=== PATIENT | male | born 1960 | race Caucasian/White ===

== ENCOUNTER → 2020-12-26 10:17 | Outpatient (CLI) | payer OTHER, SELFPAY ==
--- NOTE | ~2020-12-26 | CT_ITS ---
EXAMINATION: CT lung screening DATE: 12/26/2020 11:27 INDICATION: Personal history of tobacco dependence. Lung cancer screening. TECHNIQUE: Computed tomography (CT) of the chest was performed without intravenous contrast. The dose -length product was 134.45 mGy-cm. Automated exposure control and iterative reconstruction technique were employed. COMPARISON: Chest x-ray dated 08/18/2013 FINDINGS: Heart size normal. No significant pleural or pericardial effusion. Small hiatal hernia. No thoracic lymphadenopathy. Thyroid gland is unremarkable. There are calcified mediastinal lymph nodes, consistent with chronic granulomatous disease. There is a partially visualized 1.[address] There are pancreatic calcifications which may represent chronic pancreatitis. Calcified granuloma left midlung zone. There is mild emphysema. No pneumothorax. No endobronchial les ions. There are 3 mm nodules in the left upper lobe. No lytic or blastic lesions. No acute osseous ab normality. IMPRESSION: 1. Lung-RADS category 2: Benign appearance or behavior. Continue annual screening with noncontrast lo w-dose chest CT in 12 months. Reviewed, dictated and finalized at location A. IMPRESSION: 1. Lung-RADS category 2: Benign appearance or behavior. Continue annual screeni ng with noncontrast low-dose chest CT in 12 months.
== END ==
PROVIDERS: PCP Emergency Medicine; Visit Provider Emergency Medicine
DX: Z12.2 Encounter for screening for malignant neoplasm of respiratory organs (principal); Z87.891 Personal history of nicotine dependence
CPT/HCPCS: 71271

== ENCOUNTER 2025-03-15 08:21 | Outpatient (CLI) | payer OTHER, SELFPAY ==
--- NOTE | 2025-03-15 08:28 | ECG_ITS ---
Test Date: 2025-03-15 08:38:28 Measurements Intervals [place] Rate: 88 P: 0 IA: 0 QRS: 79 QRSD: 105 T: 69 QT: 368 QTc: 447 Interpretive Statements SINUS rhythm with PACs INCOMPLETE RIGHT BUNDLE BRANCH BLOCK [90+ ms QRS DURATION, TERMINAL R IN V1/V2, 40+ ms S IN I/aVL/V4/V5/V6] ABNORMAL RHYTHM ECG No previous ECG available for comparison Electronically Signed On 03-15-2025 22:25:04 CDT by Keshia Dennis M.D.
--- OUTSIDE RECORDS SUMMARY | 2025-03-15 08:40 | XMS_ITS | Data Portability ---
Author Organization [facility] Mobile Shareholder, Main Office Address [address] [place] [address] Assessment No assessment recorded. Plan of Treatment Reminders Order Date Submit Date Provider Last Modified By Organization Details Last Modified Time Details Appointments Physical/ Annual Wellness 30 2024 08:00A Brooke Burns NP Not available Not available Not available Lab PSA, serum or plasma 2023 024 [email or web address] [id number] [facility], [address], [place], [address], 06/01/2024 08:28:05 CBC w/ auto diff 2023 024 [email or web address] [facility], [address], [place], [address], 06/01/2024 08:28:05 CMP, serum or plasma 2023 024 [facility], [address], [place], [address], 06/01/2024 08:28:05 lipid panel, serum 2023 024 [email or web address] [facility], [address], [place], [address], 06/01/2024 08:28:05 vitamin D, 25-hydrox y, total, serum 2023 024 [email or web address] 77 [facility], [address], [place], [address], 06/01/2024 08:28:05 TSH + free T4, serum 2023 024 77 [facility], [address], [place], [address], 06/01/2024 08:28:05 HbA1c (hemoglob in A1c), blood 2023 024 [email or web address] 77 [facility], [address], [place], [address], 06/01/2024 08:28:05 Referral None recorded. Procedures None recorded. Surgeries None recorded. Imaging None recorded. Medication Orders bupropion HCl 75 mg tablet 2023 024 [facility] [address], [address] [place] [address], [address], 05/25/2024 11:07:06 amlodipin e 10 mg tablet 2023 024 [facility] [address], [address] [place] [address], [address], 05/25/2024 11:07:05 lisinopri l 20 mg-hydroc hlorothia zide 25 mg tablet 2023 024 [email or web address] [facility] [address], [address] [place] [address], 05/25/2024 13:45:52 Patient TargetsNo targets recorded. Patient InstructionsNo instructions recorded. Reason for Referral None Reported. Results Created Date Observation Date Name Description Value Unit Range Abnormal Flag Note LastModifiedBy Organization Detail LastModifiedTime 06/01/2006/02/2024 TSH+F REE T4 TSH 0.964 uIU/m L 0.450- 4.500 normal Not Available [facility] ([facility]] [facility]) [address] [facility], [place], [address], 06/02/2024 14:16:51 06/01/2006/02/2024 TSH+F REE T4 T4,free(dire ct) 1.74 NG/dL 0.82-1 .77 normal Not Available [facility] ([facility]) [address] [facility], [place], [address], 06/02/2024 14:16:51 06/01/20 24 06/02/2024 CBC WITH DIFFE RENTI AL/PL ATELE T WBC 6.9 x10e3 /uL 3.4-10 .8 normal Not Available [facility] ([facility]) [address] [facility], [place], [address], 06/02/2024 14:16:51 06/01/2006/02/2024 CBC WITH DIFFE RENTI AL/PL ATELE T RBC 5.93 x10e6 /uL 4.14-5 .80 above high normal Not Available [facility] ([facility]) [address] [facility], [place], [address], 06/02/2024 14:16:51 06/01/20 24 06/02/2024 CBC WITH DIFFE RENTI AL/PL ATELE T hemoglobin 19.1 g/dL 13.0-1 7.7 above high normal Not Available [facility] ([facility]) [address] [facility], [place], [address], 06/02/2024 14:16:51 06/01/20 24 06/02/2024 CBC WITH DIFFE RENTI AL/PL ATELE T hematocrit 56.0 % 37.5-5 1.0 above high normal Not Available [facility] ([facility]) [address] [place], [address], 06/02/2024 14:16:51 06/01/2006/02/2024 CBC WITH DIFFE RENTI AL/PL ATELE T MCV 94 fL 79-97 normal Not Available [facility] ([facility]) [address] [facility], [place], [address], 06/02/2024 14:16:51 06/01/20 24 06/02/2024 CBC WITH DIFFE RENTI AL/PL ATELE T MCH 32.2 pg 26.6-3 3.0 normal Not Available [facility] ([facility]) [address] [facility], [place], [address], 06/02/2024 14:16:51 06/01/20 24 06/02/2024 CBC WITH DIFFE RENTI AL/PL ATELE T MCHC 34.1 g/dL 31.5-3 5.7 normal Not Available [facility] ([facility]) [address] [facility], [place], [address], 06/02/2024 14:16:51 06/01/20 24 06/02/2024 CBC WITH DIFFE RENTI AL/PL ATELE T RDW 12.1 % 11.6-1 5.4 Not Available [facility] ([facility]) [address] [facility], [place], [address], 06/02/2024 14:16:51 06/01/20 24 06/02/2024 CBC WITH DIFFE RENTI AL/PL ATELE T platelets 223 x10e3 /uL 150-45 0 normal Not Available [facility] ([facility]) [address] [place], [address], 06/02/2024 14:16:51 06/01/20 24 06/02/2024 CBC WITH DIFFE RENTI AL/PL ATELE T neutrophils 68 % not estab. normal Not Available [facility] ([facility]) [address] [place], [address], 06/02/2024 14:16:51 06/01/20 24 06/02/2024 CBC WITH DIFFE RENTI AL/PL ATELE T lymphs 20 % not estab. normal Not Available [facility] ([facility]) [address] [place], [address], 06/02/2024 14:16:51 06/01/20 24 06/02/2024 CBC WITH DIFFE RENTI AL/PL ATELE T monocytes 9 % not estab. normal Not Available [facility] ([facility]) [address] [facility], [place], [address], 06/02/2024 14:16:51 06/01/20 24 06/02/2024 CBC WITH DIFFE RENTI AL/PL ATELE T eos 2 % not estab. normal Not Available [facility] ([facility]) [address] [facility], [place], [address], 06/02/2024 14:16:51 06/01/20 24 06/02/2024 CBC WITH DIFFE RENTI AL/PL ATELE T basos 1 % not estab. normal Not Available [facility] ([facility]) [address] [facility], [place], [address], 06/02/2024 14:16:51 06/01/20 24 06/02/2024 CBC WITH DIFFE RENTI AL/PL ATELE T immature cells GEOSCIENCES PROFESSOR Not Available [facility] ([facility]) [address] [place], [address], 06/02/2024 14:16:51 06/01/20 24 06/02/2024 CBC WITH DIFFE RENTI AL/PL ATELE T neutrophils (absolute) 4.7 x10e3 /uL 1.4-7. 0 normal Not Available [facility] ([facility]) [address] [place], [address], 06/02/2024 14:16:51 06/01/20 24 06/02/2024 CBC WITH DIFFE RENTI AL/PL ATELE T lymphs (absolute) 1.4 x10e3 /uL 0.7-3. 1 normal Not Available [facility] ([facility]) [address] [place], [address], 06/02/2024 14:16:51 06/01/20 24 06/02/2024 CBC WITH DIFFE RENTI AL/PL ATELE T monocytes(ab solute) 0.6 x10e3 /uL 0.1-0. 9 normal Not Available [facility] ([facility]) [address] [facility], [place], [address], 06/02/2024 14:16:51 06/01/20 24 06/02/2024 CBC WITH DIFFE RENTI AL/PL ATELE T eos (absolute) 0.2 x10e3 /uL 0.0-0. 4 normal Not Available [facility] ([facility]) [address] [facility], [place], [address], 06/02/2024 14:16:51 06/01/20 24 06/02/2024 CBC WITH DIFFE RENTI AL/PL ATELE T baso (absolute) 0.0 x10e3 /uL 0.0-0. 2 normal Not Available [facility] ([facility]) [address] [facility], [place], [address], 06/02/2024 14:16:51 06/01/20 24 06/02/2024 CBC WITH DIFFE RENTI AL/PL ATELE T immature granulocytes 0 % not estab. Not Available [facility] ([facility]) [address] [facility], [place], [address], 06/02/2024 14:16:51 06/01/20 24 06/02/2024 CBC WITH DIFFE RENTI AL/PL ATELE T immature grans (abs) 0.0 x10e3 /uL 0.0-0. 1 Not Available [facility] ([facility]) [address] [facility], [place], [address], 06/02/2024 14:16:51 06/01/20 24 06/02/2024 CBC WITH DIFFE RENTI AL/PL ATELE T NRBC GEOSCIENCES PROFESSOR Not Available [facility] ([facility]) [address] [facility], [place], [address], 06/02/2024 14:16:51 06/01/20 24 06/02/2024 CBC WITH DIFFE RENTI AL/PL ATELE T hematology comments: GEOSCIENCES PROFESSOR Not Available [facility] ([facility]) [address] [place], [address], 06/02/2024 14:16:51 06/01/20 24 06/02/2024 COMP. METAB OLIC PANEL (14) glucose 112 mg/dL 70-99 above high normal Not Available [facility] ([facility]) [address] [place], [address], 06/02/2024 14:16:52 06/01/20 24 06/02/2024 COMP. METAB OLIC PANEL (14) BUN 16 mg/dL 8-27 normal Not Available [facility] ([facility]) [address] [place], [address], 06/02/2024 14:16:52 06/01/20 24 06/02/2024 COMP. METAB OLIC PANEL (14) creatinine 1.04 mg/dL 0.76-1 .27 normal Not Available [facility] ([facility]) [address] [place], [address], 06/02/2024 14:16:52 06/01/20 24 06/02/2024 COMP. METAB OLIC PANEL (14) eGFR 81 mL/mi n/1.7 3 >59 normal Not Available [facility] ([facility]) [address] [place], [address], 06/02/2024 14:16:52 06/01/20 24 06/02/2024 COMP. METAB OLIC PANEL (14) BUN/creatini ne ratio 15 10-24 normal Not Available [facility] ([facility]) [address] [place], [address], 06/02/2024 14:16:52 06/01/20 24 06/02/2024 COMP. METAB OLIC PANEL (14) sodium 138 mmol/ L 134-14 4 normal Not Available [facility] ([facility]) [address] [facility], [place], [address], 06/02/2024 14:16:52 06/01/20 24 06/02/2024 COMP. METAB OLIC PANEL (14) potassium 4.5 mmol/ L 3.5-5. 2 normal Not Available [facility] ([facility]) [address] [place], [address], 06/02/2024 14:16:52 06/01/20 24 06/02/2024 COMP. METAB OLIC PANEL (14) chloride 100 mmol/ L 96-106 normal Not Available [facility] ([facility]) [address] [place], [address], 06/02/2024 14:16:52 06/01/20 24 06/02/2024 COMP. METAB OLIC PANEL (14) carbon dioxide, total 22 mmol/ L 20-29 normal Not Available [facility] ([facility]) [address] [place], [address], 06/02/2024 14:16:52 06/01/20 24 06/02/2024 COMP. METAB OLIC PANEL (14) calcium 9.8 mg/dL 8.6-10 .2 normal Not Available [facility] ([facility] [address] [facility] [place], [address], 06/02/2024 14:16:52 06/01/20 24 06/02/2024 COMP. METAB OLIC PANEL (14) protein, total 6.5 g/dL 6.0-8. 5 normal Not Available [facility] ([facility]) [address] [place], [address], 06/02/2024 14:16:52 06/01/20 24 06/02/2024 COMP. METAB OLIC PANEL (14) albumin 4.4 g/dL 3.9-4. 9 normal Not Available [facility] ([facility]) [address] [facility] [place], [address], 06/02/2024 14:16:52 06/01/20 24 06/02/2024 COMP. METAB OLIC PANEL (14) globulin, total 2.1 g/dL 1.5-4. 5 Not Available [facility] ([facility]) [address] [place], [address], 06/02/2024 14:16:52 06/01/20 24 06/02/2024 COMP. METAB OLIC PANEL (14) bilirubin, total 0.5 mg/dL 0.0-1. 2 normal Not Available [facility] ([facility]) [address] [place], [address], 06/02/2024 14:16:52 06/01/20 24 06/02/2024 COMP. METAB OLIC PANEL (14) alkaline phosphatase 65 IU/L 44-121 normal Not Available [facility] ([facility]) [address] [place], [address], 06/02/2024 14:16:52 06/01/20 24 06/02/2024 COMP. METAB OLIC PANEL (14) AST (SGOT) 17 IU/L 0-40 normal Not Available [facility] ([facility]) [address] [place], [address], 06/02/2024 14:16:52 06/01/20 24 06/02/2024 COMP. METAB OLIC PANEL (14) ALT (SGPT) 21 IU/L 0-44 normal Not Available [facility] ([facility]) [address] [place], [address], 06/02/2024 14:16:52 06/01/20 24 06/02/2024 LIPID PANEL cholesterol, total 215 mg/dL 100-19 9 above high normal Not Available [facility] ([facility]) [address] [place], [address], 06/02/2024 14:16:52 06/01/20 24 06/02/2024 LIPID PANEL triglyceride s 86 mg/dL 0-149 normal Not Available [facility] ([facility]) [address] [place], [address], 06/02/2024 14:16:52 06/01/20 24 06/02/2024 LIPID PANEL HDL cholesterol 80 mg/dL >39 normal Not Available [facility] ([facility]) [address] [place], [address], 06/02/2024 14:16:52 06/01/20 24 06/02/2024 LIPID PANEL VLDL cholesterol franny 15 mg/dL 5-40 Not Available [facility] ([facility]) [address] [place], [address], 06/02/2024 14:16:52 06/01/20 24 06/02/2024 LIPID PANEL LDL chol calc ([facility]) 120 mg/dL 0-99 above high normal Not Available [facility] ([facility]) [address] [place], [address], 06/02/2024 14:16:52 06/01/2006/02/2024 LIPID PANEL LDL calc comment: GEOSCIENCES PROFESSOR Not Available [facility] ([facility]) [address] [place], [address], 06/02/2024 14:16:52 06/01/2006/01/2024 PSA TOTAL (REFL EX TO FREE) reflex criteria COMMEN T The perce nt free PSA is perfo rmed on a refle x basis only when the total PSA is betwe en 4.0 and 10.0 ng/mL . Not Available [facility] ([facility]) [address] [place], [address], 06/02/2024 14:16:53 06/01/20 24 06/02/2024 PSA TOTAL (REFL EX TO FREE) prostate specific Ag 0.6 NG/mL 0.0-4. 0 normal Brian ECLIA metho dolog y. Accor ding to the Ameri can Urolo gical Assoc iatio n, Serum PSA shoul d decre ase and remai n at undet ectab le level s after radic al prost atect sammie. The AUA defin es bioch emica l recur rence as an initi al PSA value 0.2 ng/mL or great er follo wed by a subse quent confi rmato ry PSA value 0.2 ng/mL or great er. Value s obtai lorene with diffe rent assay metho ds or kits canno t be used inter appiah eably . Resul ts canno t be inter prete d as absol wales evide nce of the prese nce or absen ce of adela bradley se. Not Available [facility] ([facility]) [address] [facility], [place], [address], 06/02/2024 14:16:53 06/01/20 24 06/02/2024 HEMOG LOBIN A1C hemoglobin A1C 5.5 % 4.8-5. 6 normal Predi abete s: 5.7 - 6.4 Diabe shereen: >6.4 Glyce linda contr ol for adult s with diabe shereen: <7.0 Not Available [facility] ([facility]) [address] [facility], [place], [address], 06/02/2024 14:16:53 06/01/20 24 06/02/2024 VITAM IN D, 25-HY DROXY vitamin D, 25-hydroxy 38.5 NG/mL 30.0-1 00.0 Vitam in D defic iency has been defin ed by the Insti tute of Medic ine and an Endoc rine Socie ty pract ice guide line as a level of serum 25-OH vitam in D less than 20 ng/mL (1,2) . The Endoc rine Socie ty went on to furth er defin e vitam in D insuf ficie ncy as a level betwe en 21 and 29 ng/mL (2). 1. IOM (Inst itute of Medic ine). 2010. Dieta ry refer ence intak es for calci um and DSteve johnson [place]: The Natio nal [employer] . 2. Bartolo ESPINOZA, Courtney farr [place], Brenda off-F dann i MURRAY, et al. Evalu ation , treat ment, and preve ntion of vitam in D defic iency : an Endoc rine Socie ty clini franny pract ice guide line. JCEM. 2010; 96(7) :1911 -30. Not Available [facility] ([facility]) [address] [facility], [place], [address], 06/02/2024 14:16:53 Result Notes None recorded. Problems Name Problem SNOMED Code Status Onset Date Resolution Date Notes Provider Name and Address Organization Details Recorded Time Smoker 66295705 Active 2023 NORMAN Doherty [address], [address], [place], [address], [employer] 4 11:01:10 Essential hypertension 58566724 Active 2023 NORMAN Doherty [address], [address], [place], [address], [employer] 4 11:02:00 Problem Notes None recorded. Medical Equipment None Reported. Allergies No known drug allergies Medications Name Sig Start Date Stop Date Status Note LastModified by Organization Details LastModified Time tretinoin 0.1 % topical cream APPLY 1 APPLICATI ON OF CREAM TOPICALLY TO FACE AT BEDTIME FOR 30 DAYS 05/25 completed Not Available Not Available Not Available tretinoin 0.05 % topical cream APPLY 1 CREAM TO FACE TOPICALLY AT BEDTIME FOR 30 DAYS 05/25 completed Not Available Not Available Not Available amlodipine 10 mg tablet TAKE 1 TABLET BY MOUTH ONCE DAILY active Not Available Not Available No t Available bupropion HCl 75 mg tablet Take 1 tablet twice a day by oral route. 2024 active Not Available Not Available Not Avai lable lisinopril 20 mg-hydrochl orothiazide 25 mg tablet TAKE 1 TABLET BY MOUTH ONCE DAILY active Not Available Not Available No t Available hydrocortis one 2.5 % topical ointment APPLY TO EYELID TWICE DAILY NEEDED active Not Available Not Available No t Available azelaic acid 15 % topical gel APPLY THIN LAYER TOPICALLY TO FACE TWICE DAILY 05/25 completed Not Available Not Available Not Available Vitals Date Recorded Body weight Body mass index (BMI) Body height Body temperature Heart rate Oxygen saturation Oxygen saturation in Arterial blood by Pulse oximetry Systolic And Diastolic Provider Name and Address Organization Details Last Updated DateTime 4 [address]317.2 2 g 23.2 kg/m2 187.96 cm 98 [degF] 106 /min 98 % 98 % 156/82 mm[Hg] John Gutierrez RN [place] [facility] [employer] 4 10:36:36 Social History None recorded. Functional Status None recorded. Mental Status None recorded. Family History Relationship Description Onset Age of this Age Resolved Age Notes LastModified by Organization Details LastModified Time Father No current problems or disability [id number] Not available 10:38:23 Mother No current problems or disability [id number] Not available 10:38:23 Medical History No medical history recorded. Past Encounters Encounter ID Performer Location Encounter Start Date Encounter Closed Date Diagnosis/Indication Diagnosis SNOMED-CT Code Diagnosis ICD10 Code Diagnosis Note [id number] CRYSTAL Doherty-Stephany [facility] [address] [place] [address] 05/25/2024 10:32:25 05/25/2024 11:09:31 Adult health examination 150238753 Z00.00 Z00.01 Discussed medication compliance and routine follow up.Discuss ed healthy diet and routine exercise.Hipolito joneswed vaccine records and made recommenda tions as needed.Enc ouraged annual eye and dental exams, as well as twice yearly dental cleanings. Will check screening labs as listed below. Screening for malignant neoplasm of prostate 661770535 Z12.5 Smoker 12199142 F17.200 Would like to try Bupropion for smoking cessationL DCT scan UTD per patient Essential hypertension 33643504 I10 156/82 initialGoa l: 140/90Doin g well on current medication sDiscussed DASH diet with patient and increased daily routine exercise Health Concerns Section Related Observation LastModified by Organization Detai ls LastModified Time None Recorded Concern Status LastModified by Organization Details LastModified Time None Recorded Advance Directives Directive None Recorded Payers Insurance Date Sequence Insurance Name Policy Number Policy Aguilar Covered Member ID Aguilar Member ID Guarantor Name 02/22/2025 1 [facility] [id number] Oswaldo Freitas [id number] Oswaldo Freitas Notes Date Note Type Note Provider Name and Address Organization Details Recorded Time 05/25/2024 text/html Patient is a 63 year old male that presents to the office to establish care. Patient reports he is doing well overall and has no medical concerns at this time. Patient previously went to Dr. Alejandro but has not been there is a while. Patient smokes 1/2 to 1 pack of cigarettes daily, has been trying to quit. Patient would like to try Bupropion has his friend has had success with it. Patient takes Amlodipine and Lisinopril/HCTZ for hypertension that has been well controlled. labs-ordered--labc orpPSA-orderedColo guard---doesn't wish to do it nowFlu-declinesCov id-first 2 dosesTdap-awareShi ngles-declineslow dose CT scan within the last 4 yearssmoke-1/2 to 1 pack per day CRYSTAL Doherty-Stephany [address] [facility] [facility] [address], [place], [address], [place] [employer] 05/25/2024 13:57:55
--- OUTSIDE RECORDS SUMMARY | 2025-03-15 08:40 | XMS_ITS | Continuity of Care Document ---
Author Organization [facility] [place] Address [address] [facility] [place] [address] [place] [address] Phone Care Team Providers Care Air Valve Repairer Name Role Phone Seb Alejandro MD Unavailable Unavailable Allergies, Adverse Reactions, Alerts Substance Reaction Status Criticality No Known Allergies Active No Inform ation Medications Medication Instructions Dosage Effective Dates (start - stop) Status Comments Norvasc 10 mg tablet take 1 tablet by oral route every day 10 MG - Active lisinopril 20 mg-hydrochlorothiaz liza 25 mg tablet take 1 tablet by oral route every day 1.00 tablet - Active Procedures Procedure Date PREV VISIT, EST, AGE 40-64 OFFICE/OUTPATIENT VISIT, EST OFFICE/OUTPATIENT VISIT, [facility] Advance Directives Directive Yes / No Effective Date File Name No Information Encounters Encounter Description Practice Location Reason(s) For Visit Diagnoses Date Provider Providers Copied on Encounter [facility], [address] [place], [id number], tel:[phone] [facility] No Information 2 Javon Grigsby. [email or web address] [facility] [place], [address] , [place]. tel:[phone] PREV VISIT, EST, AGE 40-64 [facility], [address] [place], [place], [address], tel:[phone] [facility] Medicine physical (chief complaint) Encounter for general adult medical examination without abnormal findings 2 Javon Grigsby. [address], [facility] [address], [place], [place], [id number] , [place]. tel:[phone] OFFICE/OUTPA TIENT VISIT, [facility], [address] [place], [place], [address], tel:[phone] [facility] HLP (chief complaint) glucose1 (chief complaint) HTN (chief complaint) tobacco1 (chief complaint) HyperlipidemiaEssen tial (primary) hypertensionHypergl ycemiaTobacco useEncounter for screening for malignant neoplasm of colon Dec- 1 Javon Grigsby. [address], [place], [place], [address] , [place]. tel:[phone] OFFICE/OUTPA TIENT VISIT, [facility], [address] [place], [place], [address], [place] tel:[phone] [facility] HTN (chief complaint) nevus1 (chief complaint) HLP (chief complaint) tobacco1 (chief complaint) Essential (primary) hypertensionEncount er for screening for malignant neoplasm of colonTobacco useNevus, non-neoplasticHyper lipidemiaEncounter for screening for other viral diseases Nov-0 1 Javon Grigsby. [address], [place], [place], [address] , [place]. tel:[phone] Family History Family Member Type Diagnosis Age At Onset Brother Problem Alive and well Mother Problem 80 breast CA Father Problem 69 unknown cause Payers Payer name Insurance type Covered democrat ID Authoriza tion(s) No Information Social History Type Description Quantity Date Captured Comments Alcohol Use Details Unknown Caffeine Use Details Unknown Tobacco Use Status Smoking Status No Information Sex Male Chief Complaint And Reason For Visit No Information Plan Of Treatment Date Type Action Status Referral Ordered: [facility] -[facility] : Internal Medicine : Gastroenterology (related to Encounter for screening for malignant neoplasm of colon) ordered Referral Referred To: Peter Belle [address] [place] [address], [phone] Ordered: Referrals: [facility]opathic Physicians : Internal Medicine : Gastroenterology. [facility]. Evaluate and treat ordered Referral Ordered: CT THORAX W/O DYE ordered History Of Present Illness Encounter Date Complaint History Of Prese nt Illness physical Pt needs annual physical. Pt has HTN, Pt takes norvasc and lisinopril/hctz and his bp is stable at home. Pt denies any chest pain or headache Pt has HLP Pt has not taken crestor for one year. Pt is noncompliant with statin Pt denies any chest pain. Pt also never did colonoscopy Pt denies any GI issue. pt has been trying to lose weight with diet and exercise. Pt denies any abd pain, nausea, vomiting, appetite loss, early satiety, etc. tobacco Pt denies any he moptysis, sob or cough. His LDCT is ok. HTN Pt has HTN Pt ta kes norvasc and lisinopril./hctz and his bp is ok. Pt denies any chest pain or headache glucose Pt has high gluc ose Pt denies any polyuria, polydipsia. Pt does eat a lot of carb and processed food HLP Pt has HLP. Pt h as long acting HLP Pt was prescribed statin but he never tried. tobacco Pt has more than 30 pack year tobacco history Pt denies any sob, hemoptysis or cough HLP Pt has ? history of HLP. Pt is not on any medication now. nevus1 Pt has multiple nevus on skin Pt did have a lot of sun exposure in the past. pt denies any mole with changing size HTN Pt has HTN Pt ta kes norvasc and lisinopril/hct and his bp is ok. Pt denies any chest pain or headache Instructions Date Instruction Additional Infor mation No Information Assessments Type Assessment Date No Information
[2025-03-15 08:54] LABS: Anion Gap 6 mmol/L (4-12); Blood Urea Nitrogen 16 mg/dL (9-20); Calcium 9.6 mg/dL (8.4-10.2); Carbon Dioxide 27 mmol/L (22-30); Chloride 105 mmol/L (98-107); Estimated Glomerular Filt Rate > 60; Glucose 133 mg/dL (65-110); Potassium 4.1 mmol/L (3.4-5.0); Sodium 138 mmol/L (137-145)
== END 2025-03-15 08:22 | disposition home or self-care (01) ==
PROVIDERS: Anesthesiology; PCP Nurse Practitioner Family; Visit Provider Surgery
DX: R94.31 Abnormal electrocardiogram [ECG] [EKG] (principal); Z01.818 Encounter for other preprocedural examination; K40.90 Unilateral inguinal hernia, without obstruction or gangrene, not specified as recurrent; I10 Essential (primary) hypertension; Z79.899 Other long term (current) drug therapy
CPT/HCPCS: 36415; 80048; 86850; 86900; 86901; 93005

== ENCOUNTER 2025-03-19 00:18 | Day surgery (SDC) | payer OTHER, SELFPAY ==
[2025-03-10 16:09] VITALS: BMI 23.2
--- NOTE | 2025-03-10 16:18 | SUR.PREOP ---
Report to the Outpatient Waiting Room, entrance under the green pavilion located off [facility], at time 0930 on date 03/19/25. Planned Procedure Time: 1130.? Time changes happen often and if your time is changed the preop area will call you the afternoon before. - You and your visitor will be asked to self-screen and do not enter if you have any COVID symptoms. Please call surgeon if you need to reschedule. - A mask is optional within the hospital at this time. Patients may have clear liquids (water, carbonated beverages, clear teas, apple juice) until 3 hours prior to surgery with a maximum of 20 ounces. - No food from midnight until time of surgery and no smoking, or chewing tobacco (or any form of nicotine). No chewing gum, candy or mints. - Infants may have breast milk until 4 hours before surgery, formula 6 hours prior to surgery. - Children will be allowed to drink immediately following surgery.? If applicable, please bring a bottle or sippy cup to assist with drinking. Juice, water, soda, and popsicles are readily available.? For infants on formula, please bring formula the day of surgery.? Pacifiers are allowed. Take only the following medications with a SIP of water on the morning of surgery: amlodipine, bupropion DO NOT STOP ANY OF YOUR OTHER PRESCRIPTION MEDICATIONS PRIOR TO SURGERY EXCEPT THE FOLLOWING Hold all vitamins and supplements for 3 days per anesthesiologist. Medications to discontinue per physician hold lisinopril/HCTZ day of surgery, hold multivitamins 3 days before surgery Date to take last dose Please no make-up, nail [place], hairspray, perfume, deodorant, or body powder the day of surgery.? No jewelry (including any body piercings) or valuables the day of surgery, leave them at home.? Please take a shower or bath the night before, or the morning of, surgery with an antibacterial soap.? Wear comfortable, loose fitting clothing.? Children are encouraged to wear pajamas. - Jewelry must be removed prior to entering the operating room.? Rings and piercings that are not removed may be cut off. - The hospital will not accept responsibility for valuables.? - Please leave all valuables, including medications, at home the day of surgery. If you are going home after surgery, a licensed test car driver must drive you home.? - NO public transportation without another adult if you receive anesthesia. - We recommend that an adult stay with you for 24 hours following discharge. - We also recommend that you do not drive, make important decision, drink alcoholic beverages, or take any drugs that were not prescribed by your health care provider for at least 24 hours after your discharge time. For Pediatric surgeries, we recommend two adults accompany the child home. Follow any additional instructions given to you from your surgeon. Telephone instructions given to _patient_and asked if any additional questions and then verbalized understanding. Patient advised to call surgeon office or pre surgery nurse liaison [phone] if any additional questions.
[2025-03-19] VITALS (10 sets, daily range): BP systolic 94–138; BP diastolic 54–79; PULSE 61–78; RESP 10–19; TEMP 36.1–36.7; O2SAT 92–100
--- OUTSIDE RECORDS SUMMARY | 2025-03-19 00:21 | XMS_ITS | Data Portability ---
Author Organization [facility], Main Office Address [address] [place] [address] Assessment No assessment recorded. Plan of Treatment Reminders Order Date Submit Date Provider Last Modified By Organization Details Last Modified Time Details Appointments Physical/ Annual Wellness 30 2024 08:00A Brooke Burns NP Not available Not available Not available Lab PSA, serum or plasma 2023 024 [email or web address] 77 [facility], [address], [place], [address], 06/01/2024 08:28:05 CBC w/ auto diff 2023 024 [email or web address] [facility], [address], [place], [address], 06/01/2024 08:28:05 CMP, serum or plasma 2023 024 [id number] [facility], [address], [place], [address], 06/01/2024 08:28:05 lipid panel, serum 2023 024 [email or web address] [facility], [address], [place], [address], 06/01/2024 08:28:05 vitamin D, 25-hydrox y, total, serum 2023 024 [email or web address] 77 [facility], [address], [place], [address], 06/01/2024 08:28:05 TSH + free T4, serum 2023 024 [id number] 77 [facility], [address], [place], [address], 06/01/2024 08:28:05 HbA1c (hemoglob in A1c), blood 2023 024 [email or web address] 77 [facility], [address], [place], [address], 06/01/2024 08:28:05 Referral None recorded. Procedures None recorded. Surgeries None recorded. Imaging None recorded. Medication Orders bupropion HCl 75 mg tablet 2023 024 [facility], [address] [place] [address], [address], 05/25/2024 11:07:06 amlodipin e 10 mg tablet 2023 024 [facility] [address], [address] [place] [address], [address], 05/25/2024 11:07:05 lisinopri l 20 mg-hydroc hlorothia zide 25 mg tablet 2023 024 [email or web address] [facility] [address], [address] [place] [address], [address], 05/25/2024 13:45:52 Patient TargetsNo targets recorded. Patient InstructionsNo instructions recorded. Reason for Referral None Reported. Results Created Date Observation Date Name Description Value Unit Range Abnormal Flag Note LastModifiedBy Organization Detail LastModifiedTime 06/01/2006/02/2024 TSH+F REE T4 TSH 0.964 uIU/m L 0.450- 4.500 normal Not Available [facility] ([facility]) [address] [facility], [place], [address], 06/02/2024 14:16:51 06/01/2006/02/2024 TSH+F REE T4 T4,free(dire ct) 1.74 NG/dL 0.82-1 .77 normal Not Available [facility] ([facility]) [address] [facility], [place], [address], 06/02/2024 14:16:51 06/01/20 24 06/02/2024 CBC WITH DIFFE RENTI AL/PL ATELE T WBC 6.9 x10e3 /uL 3.4-10 .8 normal Not Available [facility] ([facility]) [address] [facility], [place], [address], 06/02/2024 14:16:51 06/01/2006/02/2024 CBC WITH DIFFE RENTI AL/PL ATELE T RBC 5.93 x10e6 /uL 4.14-5 .80 above high normal Not Available [facility] ([facility]) [address] [facility], [place], [address], 06/02/2024 14:16:51 06/01/20 24 06/02/2024 CBC WITH DIFFE RENTI AL/PL ATELE T hemoglobin 19.1 g/dL 13.0-1 7.7 above high normal Not Available [facility] ([facility]) [address] [facility], [place], [address], 06/02/2024 14:16:51 06/01/20 24 06/02/2024 CBC WITH DIFFE RENTI AL/PL ATELE T hematocrit 56.0 % 37.5-5 1.0 above high normal Not Available [facility] ([facility]) [address] [place], [address], 06/02/2024 14:16:51 06/01/2006/02/2024 CBC WITH DIFFE RENTI AL/PL ATELE T MCV 94 fL 79-97 normal Not Available [facility] ([facility]) [address] [facility], [place], [address], 06/02/2024 14:16:51 06/01/20 24 06/02/2024 CBC WITH DIFFE RENTI AL/PL ATELE T MCH 32.2 pg 26.6-3 3.0 normal Not Available [facility] ([facility]) [address] [facility], [place], [address], 06/02/2024 14:16:51 06/01/20 24 06/02/2024 CBC WITH DIFFE RENTI AL/PL ATELE T MCHC 34.1 g/dL 31.5-3 5.7 normal Not Available [facility] ([facility]) [address] [facility], [place], [address], 06/02/2024 14:16:51 06/01/20 24 06/02/2024 CBC WITH DIFFE RENTI AL/PL ATELE T RDW 12.1 % 11.6-1 5.4 Not Available [facility] ([facility]) [address] [facility], [place], [address], 06/02/2024 14:16:51 06/01/20 24 06/02/2024 CBC WITH DIFFE RENTI AL/PL ATELE T platelets 223 x10e3 /uL 150-45 0 normal Not Available [facility] ([facility]) [address] [place], [address], 06/02/2024 14:16:51 06/01/20 24 06/02/2024 CBC WITH DIFFE RENTI AL/PL ATELE T neutrophils 68 % not estab. normal Not Available [facility] ([facility]) [address] [place], [address], 06/02/2024 14:16:51 06/01/20 24 06/02/2024 CBC WITH DIFFE RENTI AL/PL ATELE T lymphs 20 % not estab. normal Not Available [facility] ([facility]) [address] [place], [address], 06/02/2024 14:16:51 06/01/20 24 06/02/2024 CBC WITH DIFFE RENTI AL/PL ATELE T monocytes 9 % not estab. normal Not Available [facility] ([facility]) [address] [facility], [place], [address], 06/02/2024 14:16:51 06/01/20 24 06/02/2024 CBC WITH DIFFE RENTI AL/PL ATELE T eos 2 % not estab. normal Not Available [facility] ([facility]) [address] [facility], [place], [address], 06/02/2024 14:16:51 06/01/20 24 06/02/2024 CBC WITH DIFFE RENTI AL/PL ATELE T basos 1 % not estab. normal Not Available [facility] ([facility]) [address] [facility], [place], [address], 06/02/2024 14:16:51 06/01/20 24 06/02/2024 CBC WITH DIFFE RENTI AL/PL ATELE T immature cells WILDLIFE ENFORCEMENT MAJOR Not Available [facility] ([facility]) [address] [place], [address], 06/02/2024 14:16:51 06/01/20 24 06/02/2024 CBC WITH DIFFE RENTI AL/PL ATELE T neutrophils (absolute) 4.7 x10e3 /uL 1.4-7. 0 normal Not Available [facility] ([facility]) [address] [place], [address], 06/02/2024 14:16:51 06/01/20 24 06/02/2024 CBC WITH DIFFE RENTI AL/PL ATELE T lymphs (absolute) 1.4 x10e3 /uL 0.7-3. 1 normal Not Available [facility] ([facility]) [address] [place], [address], 06/02/2024 14:16:51 06/01/20 24 06/02/2024 CBC WITH DIFFE RENTI AL/PL ATELE T monocytes(ab solute) 0.6 x10e3 /uL 0.1-0. 9 normal Not Available [facility] ([facility]) [address] [facility], [place], [address], 06/02/2024 14:16:51 06/01/20 24 06/02/2024 CBC WITH DIFFE RENTI AL/PL ATELE T eos (absolute) 0.2 x10e3 /uL 0.0-0. 4 normal Not Available [facility] ([facility]) [address] [facility], [place], [address], 06/02/2024 14:16:51 06/01/20 24 06/02/2024 CBC WITH DIFFE RENTI AL/PL ATELE T baso (absolute) 0.0 x10e3 /uL 0.0-0. 2 normal Not Available [facility] ([facility]) [address] [facility], [place], [address], 06/02/2024 14:16:51 06/01/20 24 06/02/2024 CBC WITH DIFFE RENTI AL/PL ATELE T immature granulocytes 0 % not estab. Not Available [facility] ([facility]) [address] [facility], [place], [address], 06/02/2024 14:16:51 06/01/20 24 06/02/2024 CBC WITH DIFFE RENTI AL/PL ATELE T immature grans (abs) 0.0 x10e3 /uL 0.0-0. 1 Not Available [facility] ([facility]) [address] [facility], [place], [address], 06/02/2024 14:16:51 06/01/20 24 06/02/2024 CBC WITH DIFFE RENTI AL/PL ATELE T NRBC WILDLIFE ENFORCEMENT MAJOR Not Available [facility] ([facility]) [address] [facility], [place], [address], 06/02/2024 14:16:51 06/01/20 24 06/02/2024 CBC WITH DIFFE RENTI AL/PL ATELE T hematology comments: WILDLIFE ENFORCEMENT MAJOR Not Available [facility] ([facility]) [address] [facility] [place], [address], 06/02/2024 14:16:51 06/01/20 24 06/02/2024 COMP. METAB OLIC PANEL (14) glucose 112 mg/dL 70-99 above high normal Not Available [facility] ([facility]) [address] [facility] [place], [address], 06/02/2024 14:16:52 06/01/20 24 06/02/2024 COMP. METAB OLIC PANEL (14) BUN 16 mg/dL 8-27 normal Not Available [facility] ([facility]) [address] [facility] [place], [address], 06/02/2024 14:16:52 06/01/20 24 06/02/2024 COMP. METAB OLIC PANEL (14) creatinine 1.04 mg/dL 0.76-1 .27 normal Not Available [facility] ([facility]) [address] [facility] [place], [address], 06/02/2024 14:16:52 06/01/20 24 06/02/2024 COMP. METAB OLIC PANEL (14) eGFR 81 mL/mi n/1.7 3 >59 normal Not Available [facility] ([facility]) [address] [facility] [place], [address], 06/02/2024 14:16:52 06/01/20 24 06/02/2024 COMP. METAB OLIC PANEL (14) BUN/creatini ne ratio 15 10-24 normal Not Available [facility] ([facility]) [address] [facility] [place], [address], 06/02/2024 14:16:52 06/01/20 24 06/02/2024 COMP. METAB OLIC PANEL (14) sodium 138 mmol/ L 134-14 4 normal Not Available [facility] ([facility]) [address] [facility], [place], [address], 06/02/2024 14:16:52 06/01/20 24 06/02/2024 COMP. METAB OLIC PANEL (14) potassium 4.5 mmol/ L 3.5-5. 2 normal Not Available [facility] ([facility]) [address] [place], [address], 06/02/2024 14:16:52 06/01/20 24 06/02/2024 COMP. METAB OLIC PANEL (14) chloride 100 mmol/ L 96-106 normal Not Available [facility] ([facility]) [address] [place], [address], 06/02/2024 14:16:52 06/01/20 24 06/02/2024 COMP. METAB OLIC PANEL (14) carbon dioxide, total 22 mmol/ L 20-29 normal Not Available [facility] ([facility]) [address] [place], [address], 06/02/2024 14:16:52 06/01/20 24 06/02/2024 COMP. METAB OLIC PANEL (14) calcium 9.8 mg/dL 8.6-10 .2 normal Not Available [facility] ([facility]) [address] [place], [address], 06/02/2024 14:16:52 06/01/20 24 06/02/2024 COMP. METAB OLIC PANEL (14) protein, total 6.5 g/dL 6.0-8. 5 normal Not Available [facility] ([facility]) [address] [place], [address], 06/02/2024 14:16:52 06/01/20 24 06/02/2024 COMP. METAB OLIC PANEL (14) albumin 4.4 g/dL 3.9-4. 9 normal Not Available [facility] ([facility]) [address] [facility], [address], 06/02/2024 14:16:52 06/01/20 24 06/02/2024 COMP. METAB OLIC PANEL (14) globulin, total 2.1 g/dL 1.5-4. 5 Not Available [facility] ([facility]) [address] [facility] [place], [address], 06/02/2024 14:16:52 06/01/20 24 06/02/2024 COMP. METAB OLIC PANEL (14) bilirubin, total 0.5 mg/dL 0.0-1. 2 normal Not Available [facility] ([facility]) [address] [facility] [place], [address], 06/02/2024 14:16:52 06/01/20 24 06/02/2024 COMP. METAB OLIC PANEL (14) alkaline phosphatase 65 IU/L 44-121 normal Not Available [facility] ([facility]) [address] [place], [address], 06/02/2024 14:16:52 06/01/20 24 06/02/2024 COMP. METAB OLIC PANEL (14) AST (SGOT) 17 IU/L 0-40 normal Not Available [facility] ([facility]) [address] [place], [address], 06/02/2024 14:16:52 06/01/20 24 06/02/2024 COMP. METAB OLIC PANEL (14) ALT (SGPT) 21 IU/L 0-44 normal Not Available [facility] ([facility]) [address] [place], [address], 06/02/2024 14:16:52 06/01/20 24 06/02/2024 LIPID PANEL cholesterol, total 215 mg/dL 100-19 9 above high normal Not Available [facility] ([facility]) [address] [place], [address], 06/02/2024 14:16:52 06/01/20 24 06/02/2024 LIPID PANEL triglyceride s 86 mg/dL 0-149 normal Not Available [facility] ([facility]) [address] [place], [address], 06/02/2024 14:16:52 06/01/20 24 06/02/2024 LIPID PANEL HDL cholesterol 80 mg/dL >39 normal Not Available [facility] ([facility]) [address] [place], [address], 06/02/2024 14:16:52 06/01/20 24 06/02/2024 LIPID PANEL VLDL cholesterol franny 15 mg/dL 5-40 Not Available [facility] ([facility]) [address] [place], [address], 06/02/2024 14:16:52 06/01/20 24 06/02/2024 LIPID PANEL LDL chol calc ([email or web address] 120 mg/dL 0-99 above high normal Not Available [facility] ([facility]) [address] [place], [address], 06/02/2024 14:16:52 06/01/2006/02/2024 LIPID PANEL LDL calc comment: WILDLIFE ENFORCEMENT MAJOR Not Available [facility] ([facility]) [address] [place], [address], 06/02/2024 14:16:52 06/01/2006/01/2024 PSA TOTAL (REFL EX TO FREE) reflex criteria COMMEN T The perce nt free PSA is perfo rmed on a refle x basis only when the total PSA is betwe en 4.0 and 10.0 ng/mL . Not Available [facility] ([facility]) [address] [place], [address], 06/02/2024 14:16:53 06/01/20 24 06/02/2024 PSA TOTAL [...] t be inter prete d as absol tiffanie evide nce of the prese nce or absen ce of adela bradley se. Not Available [facility] ([facility]) [address] [facility], [place], [address], 06/02/2024 14:16:53 06/01/20 24 06/02/2024 HEMOG LOBIN A1C hemoglobin A1C 5.5 % 4.8-5. 6 normal Predi abete s: 5.7 - 6.4 Diabe shereen: >6.4 Glyce linda contr ol for adult s with diabe shereen: <7.0 Not Available [facility] ([facility]) [address] [facility], [place], [address], 06/02/2024 14:16:53 06/01/20 24 06/02/2024 VITAM IN [...] 2010; 96(7) :1911 -30. Not Available [facility] ([facility]) [address] [facility], [place], [address], 06/02/2024 14:16:53 Result Notes None recorded. Problems Name Problem SNOMED Code Status Onset Date Resolution Date Notes Provider Name and Address Organization Details Recorded Time Smoker 61198804 Active 2023 NORMAN Doherty [address], [place], [address], [employer] 4 11:01:10 Essential hypertension 46451643 Active 2023 NORMAN Doherty [address], [address], [place], [address], [employer] 4 11:02:00 Problem Notes None recorded. Medical [...] Address Organization Details Last Updated DateTime 4 [address].2 2 g 23.2 kg/m2 187.96 cm 98 [degF] 106 /min 98 % 98 % 156/82 mm[Hg] John Gutierrez RN [place] [facility] [employer] [employer] [facility] 4 10:36:36 Social History None recorded. Functional Status None recorded. Mental Status None recorded. Family History Relationship Description Onset Age of this Age Resolved Age Notes LastModified by Organization Details LastModified Time Father No current problems or disability [email or web address] Not available 10:38:23 Mother No current problems or disability [email or web address] Not available 10:38:23 Medical History No medical history recorded. Past Encounters Encounter ID Performer Location Encounter Start Date Encounter Closed Date Diagnosis/Indication Diagnosis SNOMED-CT Code Diagnosis ICD10 Code Diagnosis Note [id number] CRYSTAL Doherty-Stephany [facility] [address] [place] [address] 05/25/2024 10:32:25 05/25/2024 11:09:31 Adult health examination 879550701 Z00.00 Z00.01 Discussed medication compliance and routine follow up.Discuss ed healthy diet and routine exercise.Hipolito joneswed vaccine records and made recommenda tions as needed.Enc ouraged annual eye and dental exams, as well as twice yearly dental cleanings. Will check screening labs as listed below. Screening for malignant neoplasm of prostate 187810046 Z12.5 Smoker 82682201 F17.200 Would like to try Bupropion for smoking cessationL DCT scan UTD per patient Essential hypertension 77776160 I10 156/82 initialGoa l: 140/90Doin g well [...] Aguilar Member ID Guarantor Name 02/22/2025 1 [facility] [id number] Oswaldo Freitas [id number] Oswaldo Freitas Notes Date Note Type Note [...] 1 pack per day CRYSTAL Doherty-Stephany [address] [facility], [facility] [address], [place], [address], [place] [employer] 05/25/2024 13:57:55
--- OUTSIDE RECORDS SUMMARY | 2025-03-19 00:21 | XMS_ITS | Continuity of Care Document ---
Author Organization [facility] Address [address] [facility] [place] [address] [place] [address] Phone Care Team Providers Care Party Plan Sales Unit Advisor Name Role Phone Seb Alejandro MD Unavailable Unavailable Allergies, Adverse Reactions, Alerts Substance Reaction Status Criticality No Known Allergies Active No Inform ation Medications Medication Instructions Dosage Effective Dates (start - stop) Status Comments lisinopril 20 mg-hydrochlorothiaz liza 25 mg tablet take 1 tablet by oral route every day 1.00 tablet - Active Norvasc 10 mg tablet take 1 tablet by oral route every day 10 MG - Active Procedures Procedure Date PREV VISIT, EST, AGE 40-64 OFFICE/OUTPATIENT VISIT, EST OFFICE/OUTPATIENT VISIT, [facility] Advance Directives Directive Yes / No Effective Date File Name No Information Encounters Encounter Description Practice Location Reason(s) For Visit Diagnoses Date Provider Providers Copied on Encounter [facility], [address] [place], [place], [id number], tel:[phone] [facility] No Information 2 Javon Grigsby. [address] [facility] [place], [id number] , [place]. tel:[phone] PREV VISIT, EST, AGE 40-64 [facility], [address] [place], [id number], tel:[phone] [facility] [place] [facility] physical (chief complaint) Encounter for general adult medical examination without abnormal findings 2 Javon Grigsby. [address] [facility] [address], [place], [place], [id number] , [place]. tel:[phone] OFFICE/OUTPA TIENT VISIT, [facility], [address] [place], [id number], tel:[phone] [facility] HLP (chief complaint) glucose1 (chief complaint) HTN (chief complaint) tobacco1 (chief complaint) HyperlipidemiaEssen tial (primary) hypertensionHypergl ycemiaTobacco useEncounter for screening for malignant neoplasm of colon Dec- 1 aJvon Grigsby. [address], [place], [place], [address] , [place]. tel:[phone] OFFICE/OUTPA TIENT VISIT, [facility], [address] [place], [place], [id number], [place] tel:[phone] [facility] HTN (chief complaint) nevus1 (chief complaint) HLP (chief complaint) tobacco1 (chief complaint) Essential (primary) hypertensionEncount er for screening for malignant neoplasm of colonTobacco useNevus, non-neoplasticHyper lipidemiaEncounter for screening for other viral diseases Nov-0 1 Javon Grigsby. [address], [place], [place], [address] , [place]. tel:[phone] Family History Family Member Type Diagnosis Age At Onset Brother Problem Alive and well Mother Problem 80 breast CA Father Problem 69 unknown cause Payers Payer name Insurance type Covered constitution party ID Authoriza tion(s) No Information Social History [...] colon) ordered Referral Referred To: [facility] [address] [place] [address], [phone] Ordered: Referrals: Allopathic & Osteopathic Physicians : [...] nausea, vomiting, appetite loss, early satiety, etc. HLP Pt has HLP. Pt h as long acting HLP Pt was prescribed statin but he never tried. glucose Pt has high gluc ose Pt denies any polyuria, polydipsia. Pt does eat a lot of carb and processed food HTN Pt has HTN Pt ta kes norvasc and lisinopril./hctz and his bp is ok. Pt denies any chest pain or headache tobacco Pt denies any he moptysis, sob or cough. His LDCT is ok. HTN Pt has HTN Pt ta kes norvasc and lisinopril/hct and his bp is ok. Pt denies any chest pain or headache nevus1 Pt has multiple nevus on skin Pt did have a lot of sun exposure in the past. pt denies any mole with changing size HLP Pt has ? history of HLP. Pt is not on any medication now. tobacco Pt has more than 30 pack year tobacco history Pt denies any sob, hemoptysis or cough Instructions Date Instruction Additional Infor mation No Information Assessments Type Assessment Date No Information
[2025-03-19] MEDS: ACETAMINOPHEN 500 MG TABLET 1000 MG PO (10:30)
[2025-03-19] MEDS: LACTATED RINGERS 1,000 ML 30 ML IV CONT ×3 (10:30→15:04)
[2025-03-19] MEDS: KETOROLAC 15 MG/ML VIAL (*BKC) IV PUSH (10:30)
--- NOTE | 2025-03-19 10:36 | PM.IMHP ---
H&P: HPI History of Present Illness Date/Time: 03/19/25 10:36 Chief Complaint: Reducible right inguinal hernia Narrative: Mr. Freitas presents to the office at the request of Dr. lAejandro for evaluation. The patient reports a approximately 6-month history of right inguinal bulge that now extends into his scrotum. Bulge reduces at night when lying down. No associated pain, change in bowel habits, urinary difficulty, nausea, vomiting, abdominal distention, or other obstructive symptoms. Has his of left inguinal hernia repair when he was 7 or 8 years old. Review of Systems Review of Systems: The remainder of the review of systems to include constitutional, HEENT, cardiovascular, respiratory, GI, , integumentary, musculoskeletal, endocrine, immunologic, hematologic, psychiatric, and neurologic are all negative except for which is mentioned above in the HPI. [facility] Family History Family History Father Diabetes mellitus Social History Social History Smoking status: Current every day smoker Tobacco type: cigarettes Smoking end date: 09/09/23 Alcohol intake: former Substance use: never Substance use type: does not use Current Housing: Decline to Answer Concerned About Future Housing: Decline to Answer Difficulty Paying Gas/Electric Bills: Decline to Answer Difficulty Paying for Meds: Decline to Answer Currently Unemployed: Decline to Answer Education: Decline to Answer Difficulty w/ Childcare or Family Care: Decline to Answer Living arrangements: with family Occupation/Education: retired Agree to blood products: No Meds Home Medications and Allergies Home Medications ?Medication ?Instructions ?Recorded ?Confirmed ?Type amlodipine 10 mg tablet 10 mg PO DAILY 02/16/25 03/10/25 History bupropion HCl 75 mg tablet 75 mg PO BID 02/16/25 03/10/25 History lisinopril 20 1 tablet PO DAILY 02/16/25 03/10/25 History mg-hydrochlorothiazide 25 mg tablet multivitamin 1 tablet PO DAILY 02/16/25 03/10/25 History Allergies Allergy/AdvReac Type Severity Reaction Status Date / Time No Known Allergies Allergy Verified 03/10/25 16:08 Exam Const: General: comfortable and no acute distress HENMT: Ears: TM's normal bilaterally Face/Nose/Sinus: Normal nares present Mouth: Yes moist mucous membranes Eyes: General: appearance normal, both eyes and all related structures Sclera: sclerae normal Pupils: Equal, round and reactive pupils present EOM: EOMs intact bilaterally Neck: Neck: supple and no JVD Resp: Effort & Inspection: normal respiratory effort Auscultation: clear to auscultation bilaterally Cardio: Rate: regular rate Rhythm: regular rhythm GI: GI Palp: Yes Soft to palpation, No Firmness to palpation present (GI), No Tenderness to palpation present (GI), No Guarding due to palpation present (GI) and No Hernia present : Other: Large right inguino-scrotal hernia. Manually reducible with patient supine. Bilateral descended testes. No masses. Well healed left inguinal hernia repair scar from childhood hernia. No left inguinal hernia. Skin: General skin exam: normal color and no rashes or lesions noted Neuro: General: gait normal Speech: normal speech Motor exam (neuro): 5/5 motor strength present throughout Sensory Exam: normal sensation Extrem: General: normal to inspection Psych: Mental Status: mental status grossly normal Affect: normal affect Assessment and Plan Assessment and plan (1) Inguinal hernia without obstruction or gangrene: Qualifiers: Laterality: unilateral Recurrence: non-recurrent Qualified Code(s): K40.90 - Unilateral inguinal hernia, without obstruction or gangrene, not specified as recurrent Code(s): K40.90 - Unilateral inguinal hernia, without obstruction or gangrene, not specified as recurrent Status: Acute Assessment and Plan: Prior to the patients visit, I reviewed the office note of Dr. Alejandro. Patient has a large reducible right inguino-scrotal hernia containing bowel. No symptoms of obstruction. I've recommended proceeding with robotic assisted laparoscopic right inguinal hernia repair with mesh, possible left inguinal hernia repair to be done in the OR under general anesthesia as an outpatient. The surgery was explained in detail including description, risks, benefits, the use of mesh, post-operative restrictions, recovery, and expected outcome. He agrees to proceed as discussed.
--- NOTE | 2025-03-19 10:39 | WPDHPUPDATE1 ---
History and Physical Update Update Date/Time: 03/19/25 10:39 History and Physical has been reviewed, including an updated exam of the patient. There are NO changes in the patient's condition. Risks, benefits, and alternatives have been discussed and questions answered. Patient agrees to proceed with procedure.
--- NOTE | 2025-03-19 10:47 | P.PNAN_ITS ---
Anes - Initial Pre Proc Eval Procedure: Operation Date: 03/19/25 11:30 Proposed Procedures p Robotic Assisted Laparoscopic Right Inguinal Hernia Repair with Mesh, Possible Left Inguinal Hernia with Mesh - Turner Ferris MD Date/Time: 03/19/25 10:47 Surgeon: Turner Ferris MD Pre Op Diagnosis: right inguinal hernia Patient Data Age: 64 Gender: M Height: 1.88 m Weight: 81 kg Last Vital Signs Temp 36.7 C 03/19/25 10:30 Pulse 78 03/19/25 10:30 Resp 16 03/19/25 10:30 BP 138/79 03/19/25 10:30 Pulse Ox 100 03/19/25 10:30 O2 Del Method Room Air 03/19/25 10:30 Allergies Allergy/AdvReac Type Severity Reaction Status Date / Time No Known Allergies Allergy Verified 03/10/25 16:08 Home Medications ?Medication ?Instructions ?Recorded ?Confirmed ?Type amlodipine 10 mg tablet 10 mg PO DAILY 02/16/25 03/10/25 History bupropion HCl 75 mg tablet 75 mg PO BID 02/16/25 03/10/25 History lisinopril 20 1 tablet PO DAILY 02/16/25 03/10/25 History mg-hydrochlorothiazide 25 mg tablet multivitamin 1 tablet PO DAILY 02/16/25 03/10/25 History Patient hx anesthesia problems: none Family hx anesthesia problems: none Results Review: All pre-operative results and documents have been reviewed as part of the pre- operative evaluation. [facility] Past Medical History Medical History (Updated 03/19/25 @ 10:48 by Oswaldo Lozoya MD) HTN (hypertension) Family History Family History Father Diabetes mellitus Social History Social History Smoking status: Current every day smoker Tobacco type: cigarettes Alcohol intake: former Substance use: never Substance use type: does not use Current Housing: Decline to Answer Concerned About Future Housing: Decline to Answer Difficulty Paying Gas/Electric Bills: Decline to Answer Difficulty Paying for Meds: Decline to Answer Currently Unemployed: Decline to Answer Education: Decline to Answer Difficulty w/ Childcare or Family Care: Decline to Answer Living arrangements: with family Occupation/Education: retired Agree to blood products: No Anes - Eval Final PreProcedure Day of Procedure 03/19/25 10:47 Patient weight: normal Heart: regular rate and rhythm Lungs: clear to auscultation Airway: Mallampati scale class II Neurological: alert and oriented Last oral intake: >/= 8 hours ASA classification: III Emergent: no Anesthetic plan: proceed Anesthesia type and monitoring: general ETT and standard monitoring Results Review: All pre-operative results and documents have been reviewed as part of the pre- operative evaluation. Informed Consent: The patient's anesthetic plan and its attendant risks and benefits were discussed with the patient/family/POA. Questions were solicited and answers provided to the satisfaction of the patient/family/POA.
[2025-03-19] MEDS: ceFAZolin 2 GM in SODIUM CHLORIDE 0.9% IV 50 ML 100 ML IVPB (10:58)
[2025-03-19] MEDS: BUPivacaine HCL 0.5% 10 ML AMP 30 ML INFILTRATE (11:34)
[2025-03-19] MEDS: LIDO 1%/EPINEPHRINE 1:100,000 20 ML VIAL 30 ML INFILTRATE (12:42)
--- NOTE | 2025-03-19 14:10 | P.OPB_ITS ---
Procedure Note - Brief Procedure Note - Brief Date of procedure: 03/19/25 Right inguinal scrotal Hernia Post-op diagnosis: Same Procedure performed: Robotic assisted laparoscopic right inguinal hernia repair with Bard 3D mid weight mesh Surgeon: Turner Ferris MD [employer]: Jackie VASQUEZ Anesthesia: GETA Implants: Bard 3D mid weight mesh extra-large [id number] oriented for right groin Estimated blood loss (mL): 30 Drains: No Packing: No Pathology: None sent Complications: No immediate complications Condition: Stable Disposition: PACU
[2025-03-19] MEDS: PROPARACAINE HCL 0.5% 15 ML OPHTH SOLN 1 DROP EACH EYE (15:39)
[2025-03-19] MEDS: DICLOFENAC SODIUM 0.1% OPHTH SOLN 2.5 ML BOTTLE 1 DROP EACH EYE (15:45)
[2025-03-19] MEDS: oxyCODONE HCL (*CRX) 5 MG TAB IR PO (15:45)
[2025-03-19] MEDS: ARTIFICIAL TEARS OPHTH SOLN 15 ML BOTTLE 1 DROP EACH EYE (15:49)
--- NOTE | 2025-03-19 15:55 | SUR.PHASEII ---
DR HILLIARD CALLED RE: PATIENT'S RIGHT REDDENED, TEARING, MOSTLY CLOSED SHUT AND BURNING. ADMINISTERED EYE DROPS TO RIGHT EYE ONLY. ARTIFICIAL TEARS AND DICLOFENAC EYE DROPS GIVEN TO PATIENT TO TAKE HOME.
--- NOTE | 2025-03-19 16:19 | SUR.PHASEII ---
PATIENT NOW ABLE TO KEEP RIGHT EYE OPEN CONSISTENTLY NOW; DENIES PAIN NOW. NO TEARING.
--- NOTE | 2025-03-19 18:08 | P.OP_ITS ---
Procedure Note - Detailed Date of Procedure 03/19/25 Pre-op Diagnosis Reducible right inguinal scrotal hernia. Post-op Diagnosis Same Procedure Performed Robotic assisted laparoscopic right inguinal hernia repair with Bard 3D mid weight mesh Surgeon Turner Ferris MD Veterans' Counselor Jackie Parnell [facility] Anesthesia General Indications Patient is a 64-year-old gentleman who has had a longstanding right inguinal hernia. It has continued to enlarge over time is now extended down into his rig ht scrotum. In the office the hernia was reducible manually with the patient in the supine position. He presents now for repair of the right inguinal hernia with mesh via robotic assisted laparoscopic approach. Findings Patient had a large indirect right inguinal hernia. The cecum and terminal ileum was in the inguinal canal upon entering the abdomen revealing the area with a laparoscopic. However with the patient in the head-down Trendelenburg position and gentle pressure on the scrotum and right groin region all the bowel reduced without difficulty out of the inguinal canal. All the bowel appeared to be viable. There was no evidence of recurrent left inguinal hernia on exam laparoscopically. Description of Procedure After informed consent was obtained patient brought to the operating room was placed supine position and general endotracheal anesthesia was administered. The abdomen and bilateral groin regions were then prepped and draped usual sterile fashion. A time-out was then performed correctly identifying the patient as well as procedure to be performed. Site marking was verified he was given perioperative IV antibiotics. I began the procedure by placing a 5mm Optiview port in the left upper quadrant. Once inside the abdomen insufflated to adequate pneumoperitoneum of 15mmHg of CO2. I had an unobstructed view of the groins. There was no evidence of a recurrent left inguinal hernia. In the right groin region there was a large indirect right inguinal hernia defect with the cecum and the terminal ileum within the inguinal canal. I then placed the patient 15? head down in Trendelenburg position and with gentle pressure on the right groin region all the bowel reduced out of the inguinal canal without difficulty. Cecum and terminal ileum appeared normal the appendix. I then proceeded to place robotic trocar ports across the mid abdomen. This is done un jyothi direct visualization without difficulty. The Breaker robot was then brought to the patient's bedside and docked. Robotic arms were then attached robotic ports and then robotic instruments were then advanced into the abdomen under direct visualization. I then scrubbed out the procedure and sat down at the robotic console to perform the dissection. I 1st started by making a preperitoneal flap just anterior medial to the right anterior superior iliac spine. It was carried across lower abdominal wall to the midline. I divided the right median umbilical ligament. I continued dissection the preperitoneal plane medially down to the pubic tubercle. I then dissected laterally to the pubic symphysis dropping the right side of the bladder away from the pubic tubercle and the space of Retzius. I dissected out the space of Retzius with the robotic hook cautery for couple cm. I then proceeded to further dissect the peritoneum off of the inferior epigastric vessels and then down to the area of the internal ring with a large indirect inguinal hernia sac extending down into the scrotum. Due to the large sac I decided not to try to dissect the sac out of the scrotum and risk damage to the testicle for vas deferens or testicular vessels. I then proceeded to perform the abandoned sac technique where I incised the peritoneum just inside the internal ring and dividing the hernia sac but protecting and preserving the vas deferens and testicular vessels. I then proceeded to further dissect the peritoneum off of the cord structures and onto the psoas muscle. The distal part of the hernia sac was left to involute the right side of the scrotum. Once I had the proximal edge of the peritoneum dissected high enough so that it would not roll up the proximal edge of the mesh I then proceeded to choose a piece of Bard 3D mid weight mesh measuring [id number] oriented for the right groin region. The mesh was placed into the abdomen the bedside advertising assistant port site which had previously been changed over to a 10mm port. It was then placed into the dissected right groin space covering the home myopectineal orifice. There was wide overlap of the mesh with the very dilated internal ring as well as the direct space and femoral space. I then secured the mesh in place at the pubic tubercle with some interrupted 2-0 Vicryl sutures robotically. Laterally the mesh was secured to the muscle fibers anterior medial to the right anterior superior iliac spine. Additional suture was placed of the mesh to the edge of the internal ring muscle as well as at the direct space. I then checked and hemostasis was good in the cord structures. I then proceeded to reapproximate the edges of the peritoneal flap by placing a running 2-0 absorbable V lock suture. The resulting hole in the peritoneum from the division of the hernia sac was then closed utilizing a running absorbable 3- 0 V lock suture. At this point all the mesh was completely from the intra-abdominal viscera of intact peritoneum. I then proceeded to remove all the robotic instruments from the abdomen. The exoro systemi robot was then docked from the patient's bedside. I then scrubbed back into the procedure to perform closure of the 8mm periumbilical trocar port site as well as the 10mm left upper quadrant trocar port site. These were both the performed by placement of 0 Vicryl sutures transfascially under laparoscopic guidance with the suture assist device. All the port sites were then removed under direct visualization all port sites appeared hemostatic. The abdomen was then allowed to decompress. The port sites were then irrigated sterile saline solution he and hemostasis was good. 1% lidocaine mixed with 0.5% Marcaine with some epinephrine was injected around all the port sites for local anesthetic effect. The port sites were then all closed at the skin level utilizing a running subcuticular 4-0 Monocryl suture. The incisions were then cleaned and then skin glue was applied. The patient tolerated the procedure well no complications. All sponges, needles, and instrument counts were correct at the end procedure. EBL was _30__cc. The patient was awakened and taken to recovery in stable and satisfactory condition. Implants Bard 3D mid weight mesh measuring [id number] oriented for right groin. Estimated Blood Loss 30 Drains No Packing No Pathology None sent Complications No immediate complications Condition Stable Disposition PACU [facility] Billing Surgery - Charge Forward: Surgery Billing
== END 2025-03-19 16:26 | disposition home or self-care (01) ==
PROVIDERS: PCP Nurse Practitioner Family; Visit Provider Surgery
PROC: 8E0Y4CZ Robotic Assisted Procedure of Lower Extremity, Percutaneous Endoscopic Approach (ICD-10-PCS; CPT 49650; principal; 2025-03-19 11:30)
DX: K40.90 Unilateral inguinal hernia, without obstruction or gangrene, not specified as recurrent (principal); F17.210 Nicotine dependence, cigarettes, uncomplicated
CPT/HCPCS: 49650; S2900; J0690; A9270; C1781; J1100; J1171; J1885; J2003; J2004; J2405; J2704; J7120

== ENCOUNTER 2025-07-16 11:44 | Outpatient (CLI) | payer OTHER, SELFPAY ==
--- NOTE | ~2025-07-16 | CT_ITS ---
EXAMINATION:CT lung screening DATE: 07/16/2025 12:02 INDICATION: Screening TECHNIQUE: Computed tomography (CT) of the chest was performed without intravenous contrast. The dose-length product (DLP) was 95.47 mGy-cm. COMPARISON: December 26, 2020 FINDINGS: Scattered calcified granulomas and tiny radiographically stable/benign left upper lobe nodules again noted. No new nodules or suspicious lesions/masses. Mediastinal structures appear stable. In the visualized upper abdomen, 2 cm liver cystic lesion, and 4.5 cm upper pole right renal cystic lesion unchanged. Field of view on today's exam extends more caudally and a mildly complex 3 x 2 cm dense cystic mass is partially visualized. Adrenal glands appear stable. IMPRESSION: 1. No suspicious lung nodules. LUNG RADS 2. Follow-up chest CT in 12 months recommended. 2. Complex/hyperattenuating appearance of probable bloody cyst in the right kidney which is incompletely visualized. Correlate with renal ultrasound or MRI. Reviewed, dictated and finalized at location A. OOD MANAGER IMPRESSION: 1. No suspicious lung nodules. LUNG RADS 2. Follow-up chest CT in 12 months rec ommended. 2. Complex/hyperattenuating appearance of probable bloody cyst in the right kid aggie which is incompletely visualized. Correlate with renal ultrasound or MRI.
== END 2025-07-16 11:45 | disposition home or self-care (01) ==
LOC: MICIMG 11:45
PROVIDERS: PCP Nurse Practitioner Family; Visit Provider Nurse Practitioner Family
DX: Z12.2 Encounter for screening for malignant neoplasm of respiratory organs (principal); Z87.891 Personal history of nicotine dependence
CPT/HCPCS: 71271

== ENCOUNTER 2025-08-03 10:16 | Outpatient (CLI) | payer OTHER, SELFPAY ==
--- NOTE | ~2025-08-03 | US_ITS ---
US renal BI 08/03/2025 10:32 Procedure: Realtime transabdominal ultrasound of the kidneys and bladder. Indication: Renal cyst seen on CT. Comparison: CT dated 07/16/2024 Findings: Renal echotexture is normal bilaterally without hydronephrosis, or renal calculus. There are right renal cysts. There is a hypoechoic mass of the right kidney with low-level internal echoes located laterally measuring 2.9 x 2.7 x 2.6 cm. This likely represents a complicated cyst. The right kidney measures 11.3 cm and left kidney measures 11.2 cm. Bladder within normal limits. Impression: 1: Probable benign complicated 2.9 cm cyst of the right kidney laterally which likely corresponds to the suspicious mass seen on CT. Six-month follow-up ultrasound recommended to assess stability. Reviewed, dictated and finalized at location O. ORK TECHNICIAN Impression: 1: Probable benign complicated 2.9 cm cyst of the right kidney laterally which likely corresponds to the suspicious mass seen on CT. Six-month follow-up ultra sound recommended to assess stability.
== END 2025-08-03 10:17 | disposition home or self-care (01) ==
PROVIDERS: PCP Nurse Practitioner Family; Visit Provider Nurse Practitioner Family
DX: N28.1 Cyst of kidney, acquired (principal)
CPT/HCPCS: 76770